=== PATIENT | female | born 1960 ===

== ENCOUNTER 2017-04-08 22:31 | Inpatient (IN) | payer MEDICARE, MEDICAID ==
--- NOTE | 2017-04-08 22:46 | C.PDOC ---
History Of Present Illness Pt was seen and medically cleared at [facility]. Pt was accepted in transfer by dr rodriguez for psychiatric admission Time Seen by Provider: 04/08/17 22:41 Chief Complaint (Nursing): Psychiatric Evaluation History Per: Patient History/Exam Limitations: no limitations Onset/Duration Of Symptoms: Days Current Symptoms Are (Timing): Still Present Suicide/Self Injury Attempted (Context): None Modifying Factor(s): None Severity: Moderate Pain Scale Rating Of: 4 Associated Symptoms: Anxiety Involuntary Hold By: None Recent travel outside of the [place]: No Additional History Per: Patient Past Medical History Reviewed: Historical Data, Nursing Documentation, Vital Signs Vital Signs: Last Vital Signs Temp 98.1 F 04/08/17 22:33 Pulse 58 L 04/08/17 22:33 Resp 20 04/08/17 22:33 BP 161/85 H 04/08/17 22:33 Pulse Ox 100 04/08/17 22:33 - Medical History PMH: Anxiety, Arthritis, Bipolar Disorder, Depression, Diabetes, HTN, Hypercholesterolemia, Hyperthyroidism, Schizophrenia Denies: Hepatitis, HIV, Chronic Kidney Disease, Seizures, Sexually Transmitted Disease Comment Only: Hypothyroidism (presently active) Surgical History: Cholecystectomy, Hernia Repair (umbilical hernia repair) - [facility] Procedures GROUP CHIEF LENDING OFFICER FOR SUBSTANCE ABUSE TREATMENT, PSYCHOEDUCATION (04/23/16) GROUP PSYCHOTHERAPY (03/22/16) INDIVID PSYCHOTHERAP NEC (10/09/14) INDIVIDUAL PSYCHOTHERAPY, COGNITIVE-BEHAVIORAL (03/22/16) INDIVIDUAL PSYCHOTHERAPY, SUPPORTIVE (04/02/17) INJECT/INFUSE NEC (03/26/14) OTHER GROUP THERAPY (10/09/14) Family History: States: No Known Family Hx - Social History Hx Tobacco Use: No Hx Alcohol Use: No (denies) Hx Substance Use: No (denies) - Immunization History Hx Tetanus Toxoid Vaccination: Yes Hx Influenza Vaccination: Yes Hx Pneumococcal Vaccination: Yes Review Of Systems Constitutional: Negative for: Fever, Chills Cardiovascular: Negative for: Chest Pain Respiratory: Negative for: Shortness of Breath Gastrointestinal: Negative for: Nausea Genitourinary: Negative for: Dysuria Musculoskeletal: Negative for: Back Pain Skin: Negative for: Rash Neurological: Negative for: Weakness Psych: Positive for: Anxiety Physical Exam - Physical Exam Appears: Non-toxic, No Acute Distress Skin: Warm, Dry Head: Normacephalic Oral Mucosa: Moist Neck: Supple Cardiovascular: Rhythm Regular Respiratory: No Rales, No Rhonchi Gastrointestinal/Abdominal: Soft, No Tenderness Extremity: Normal ROM Neurological/Psych: Oriented x3, Normal Speech, Normal Cognition Gait: Steady ED Course And Treatment O2 Sat by Pulse Oximetry: 100 Pulse Ox Interpretation: Normal Disposition Discussed With Dr.: Robert Rodriguez Comment: accepted the pt on his service and took over the care at 10:45 PM Doctor Will See Patient In The: Hospital Counseled Patient/Family Regarding: Studies Performed, Diagnosis - Disposition Disposition: HOSPITALIZED Disposition Time: 22:43 Condition: FAIR - POA Present On Arrival: None - Clinical Impression Clinical Impression: Manic bipolar I disorder Decision To Admit - Pt Status Changed To: Hospital Disposition Of: Inpatient - Admit Certification Admit to Inpatient:: After my assessment, the patient will require hospitalization for at least two midnights. This is because of the severity of symptoms shown, intensity of services needed, and/or the medical risk in this patient being treated as an outpatient. - InPatient: Physician Admission Certification: I certify that this patient requires 2 or more midnights of care for the following reason:: After my assessment, the patient will require hospitalization for at least two midnights. This is because of the severity of symptoms shown, intensity of services needed, and/or the medical risk in this patient being treated as an outpatient. - . Bed Request Type: Psychiatry Admitting Physician: Robert Rodriguez Patient Diagnosis: Manic bipolar I disorder
--- NOTE | 2017-04-09 09:34 | PCM.PSYCH ---
Initial Psychiatric Evaluation - Initial Psychiatric Evaluation Type of Admission: Voluntary Legal Status: Capacity Chief Complaint (in patient's own words): "I have delusions" History of Present Illness and Precipitating Events: Patient is a 56 years-old female, who lives with her son, was brought to the ER via EMS by her neighbor due to bizarre behavior. Patient is a poor historian. She remains superficially cooperative but guarded about the details. She reports of having delusions, and states that everyone is related to her. She states that she missed taking her medications for 2 days due to being locked out of her house, and had went to her brother's house, but a neighbor who found her outside brought her to the hospital. She states that she does not know why she was brought to the hospital. During the evaluation, she appears very disorganized and internally preoccupied. She is unkempt and disheveled and appears very paranoid and delusional. As per the staff, she speaks Israeli and Iraqi, but during the evaluation, she refused to speak Israeli because "it makes me sleepy." When asked why she came to the hospital, she started explaining the meaning of her name and started telling, how people mis-spell her name. She continues to have circumstantial and loose associations. Patient remains guarded about any hallucinations, and suicidal ideations. She denies any previous suicide attempts. Patient has a history of bipolar disorder. Her last psychiatric hospitalization was on 04/02/17 in [place], [place]. She denies any substance abuse. Past medical history DM Current Medications: Active Medications Generic Name Dose Route Start Last Admin Trade Name Freq PRN Reason Stop Dose Admin Haloperidol 5 mg 04/08/17 23:09 04/09/17 05:41 Haldol PO 5 mg Q6 PRN Administration Agitation Lorazepam 1 mg 04/08/17 23:09 04/09/17 05:41 Ativan PO 1 mg Q6 PRN Administration Anxiety Lorazepam 1 mg 04/08/17 23:36 04/09/17 00:06 Ativan IM 1 mg Q6H PRN Administration Severe anxiety Past Psychiatric History - Past Psychiatric History Previous Treatment History: Inpatient Pertinent Medical Hx (Current Medical&Sleep Prob, Allergies): Allergies Allergy/AdvReac Type Severity Reaction Status Date / Time tomato Allergy RASH Verified 04/08/17 22:40 Atorvastatin [Lipitor] 20 mg PO DAILY #30 tab 04/04/17 Benztropine [Cogentin] 1 mg PO BID #60 tab 04/04/17 Haloperidol [Haldol] 5 mg PO BID #60 tab 04/04/17 Levothyroxine [Synthroid] 88 mcg PO DAILY@0630 #30 tab 04/04/17 [place] Carbonate [[place] Carbonate 300MG] 300 mg PO TID #45 cap 04/04/17 Losartan [Cozaar] 50 mg PO DAILY #30 tab 04/04/17 Pregabalin [Lyrica] 75 mg PO BID #0 cap 04/04/17 metFORMIN [glucOPHAGE] 500 mg PO BID #60 tab 04/04/17 traZODone [Desyrel] 50 mg PO HS PRN #30 tab 04/04/17 Review of Systems - Review of Systems Systems not reviewed;Unavailable: Altered Mental Status All systems: reviewed and no additional remarkable complaints except - Psychiatric Psychiatric: Anxiety, Auditory Hallucinations, Irritability, Paranoia, Visual Hallucinations Mental Status Examination - Personal Presentation Personal Presentation: Looks stated age - Affect Affect: Broad - Motor Activity Motor Activity: Psychomotor Agitation - Reliability in Providing Information Reliability in Providing Information: Poor, due to alteration in thoughts, Poor , due to altered mood - Speech Speech: Disorganized, Tangential - Mood Mood: Anxious - Formal Thought Process Formal Thought Process: Hallucinations, Delusions, Paranoia, Loosening of associations, Flight of ideas, Circumstantial - Hallucinations/Delusions Hallucinations: Visual, Auditory Delusions: Persecution - Obsessions/Compulsions Obsessions: No Compulsions: No - Cognitive Functions Orientation: Person, Place, Situation, Time Sensorium: Alert Attention/Concentration: Attentive Abstract Thinking: [place] Estimate of Intelligence: Below average Judgement: Imparied, as evidence by: Poor judgement, Imparied, as evidence by: Lack of insight into illness - Risk Risk: Diminished functioning - Strength & Assets Inventory Strength & Assets Inventory: Cooperative DSM 5 DX - DSM 5 DSM 5 Diagnosis: Schizoaffective disorder bipolar type - Recommended/Plan of Treatment Treatment Recommendations and Plan of Treatment: Schizoaffective disorder bipolar type CBT Psychoeducation Supportive therapy, group therapy, individual therapy Haldol 5 mg by mouth twice a day Cogentin 1 mg pO BID [place] 300 mg pO TID Trazodone 50 mg by mouth daily at bedtime - Smoking Cessation Smoking Cessation Initiated: No
[2017-04-10] MEDS: Levothyroxine 88 MCG TAB PO SCH (06:22)
--- NOTE | 2017-04-10 10:30 | PCM.PYCHPN ---
Psychiatric Progress Note - Psychiatric Progress Note Patient seen today, length of contact: 16 min Patient Chief Complaint: "I am hearing voices" Problems Identified/Issues Discussed: Patient seen and evaluated, chart reviewed and discussed with the nurse. Patient remained disorganized and internally preoccupied. Patient remained withdrawn. She still reports of hearing voices. Patient still appears paranoid and delusional. She was pacing back and forth in the hallways and was talking to herself continuously. As per the staff, she was talking loudly to herself whole night and didn't go to sleep. She is taking medication and denies any side effects. Supportive therapy and psychoeducation were given. Medication Change: Yes (Increase Haldol) Medical Record Reviewed: Yes Mental Status Examination - Cognitive Function Orientation: Person, Place, Situation, Time Memory: Impaired Attention: Poor Concentration: Poor Association: Loose Fund of Knowledge: Poor - Mood Mood: Anxious - Affect Affect: Broad - Speech Speech: Loud - Formal Thought Process Formal Thought Process: Hallucinations, Delusions, Paranoia, Loosening of associations, Flight of ideas, Circumstantial - Suicidal Ideation Suicidal Ideation: No - Homicidal Ideation Homicidal Ideation: No Goal/Treatment Plan - Goal/Treatment Plan Need for Continued Stay: Remain at risks for inpatient hospitalization, Discharge may exacerbated symptoms, Severe functional impairment Progress Toward Problem(s) and Goals/Treatment Plan: Schizoaffective disorder bipolar type CBT Psychoeducation Supportive therapy, group therapy, individual therapy Haldol 5 mg by mouth daily Haldol 10 mg PO QHS Cogentin 1 mg pO BID [place] 300 mg pO TID Trazodone 50 mg by mouth daily at bedtime Estimated Date of D/C: 04/16/17
[2017-04-10] MEDS ORDERED: Diphenhydramine 1% Cream (1 oz) TOP PRN (20:12)
[2017-04-11] MEDS: Levothyroxine 88 MCG TAB PO SCH (07:10)
--- NOTE | 2017-04-11 13:54 | PCM.PYCHPN ---
Psychiatric Progress Note - Psychiatric Progress Note Patient seen today, length of contact: 18 min Patient Chief Complaint: "[employer] is offering me a job." Problems Identified/Issues Discussed: Patient is seen, evaluated, and case discussed with staff. Patient remained delusional and paranoid. She remained unkempt, and disheveled. She remained delusional that [employer] in offering her job. She continued to laugh and talk by herself. Patient still appears very disorganized , and manic. She reports that she did not get much sleep last night and has been awake since 2 am. Patient is complaint with all medications, and reports no side effects. Support and psychoeducation given. Medication Change: Yes (increase haldol) Medical Record Reviewed: Yes Mental Status Examination - Cognitive Function Orientation: Person, Place, Situation, Time Memory: Impaired Attention: Poor Concentration: Poor Association: Loose Fund of Knowledge: Poor - Mood Mood: Anxious - Affect Affect: Broad - Speech Speech: Loud - Formal Thought Process Formal Thought Process: Hallucinations, Delusions, Paranoia, Loosening of associations, Flight of ideas, Circumstantial - Suicidal Ideation Suicidal Ideation: No - Homicidal Ideation Homicidal Ideation: No Goal/Treatment Plan - Goal/Treatment Plan Need for Continued Stay: Remain at risks for inpatient hospitalization, Discharge may exacerbated symptoms, Severe functional impairment Progress Toward Problem(s) and Goals/Treatment Plan: Schizoaffective disorder bipolar type CBT Psychoeducation Supportive therapy, group therapy, individual therapy Haldol 10 mg by mouth twice a day Cogentin 1 mg pO BID [place] 300 mg pO TID Trazodone 50 mg by mouth daily at bedtime Estimated Date of D/C: 04/16/17
[2017-04-12] MEDS: Levothyroxine 88 MCG TAB PO SCH (06:27)
--- NOTE | 2017-04-12 09:39 | PCM.PYCHPN ---
Psychiatric Progress Note - Psychiatric Progress Note Patient seen today, length of contact: 18 min Patient Chief Complaint: "I have delusions that I am friendly with everyone" Problems Identified/Issues Discussed: Patient is seen, evaluated, and case discussed with staff. Patient states that she has delusions that she is friendly with everyone. She does not confuse staff with her family members today, but continues to have incoherent thoughts and believes she knows them from her past. Patient still appears very disorganized, and manic. She denies any hallucinations, and suicidal ideations. Staff reports that she only slept for 4-5 hours last night. Patient is complaint with all medications, and reports no side effects. Support and psychoeducation given. Medication Change: Yes (Start Fluphenazine, Start Klonopin, ) Medical Record Reviewed: Yes Mental Status Examination - Cognitive Function Orientation: Person, Place, Situation, Time Memory: Impaired Attention: Poor Concentration: Poor Association: Loose Fund of Knowledge: Poor - Mood Mood: Anxious - Affect Affect: Broad - Speech Speech: Loud - Formal Thought Process Formal Thought Process: Delusions, Paranoia, Loosening of associations, Flight of ideas, Circumstantial - Suicidal Ideation Suicidal Ideation: No Goal/Treatment Plan - Goal/Treatment Plan Need for Continued Stay: Remain at risks for inpatient hospitalization, Discharge may exacerbated symptoms, Severe functional impairment Progress Toward Problem(s) and Goals/Treatment Plan: Schizoaffective disorder bipolar type CBT Psychoeducation Supportive therapy, group therapy, individual therapy Haldol 10 mg by mouth twice a day Cogentin 1 mg pO BID [place] 300 mg pO TID Trazodone 50 mg by mouth daily at bedtime Start Fluphenazine 5 mg PO BID Start Klonopin 1 mg PO BID Start Seroquel 200 mg PO QHS Estimated Date of D/C: 04/17/17
[2017-04-12] MEDS: Divalproex 250 mg DR Tab PO SCH ×2 (17:30→17:56)
[2017-04-13] MEDS: Levothyroxine 88 MCG TAB PO SCH (07:40)
[2017-04-13] MEDS: Divalproex 250 mg DR Tab PO SCH ×3 (09:56→17:46)
--- NOTE | 2017-04-13 14:48 | PCM.PYCHPN ---
Psychiatric Progress Note - Psychiatric Progress Note Patient seen today, length of contact: 17 min Patient Chief Complaint: "I have delusions" Problems Identified/Issues Discussed: Patient is seen, evaluated, and case discussed with staff. Patient states that she has delusions today. Patient is very irritable today, and gets upset very quickly with the staff and other patients. Patient still appears very disorganized, and manic. She denies any hallucinations, and suicidal ideations. Staff reports that she slept for 6 hours last night. Patient is complaint with all medications, and reports no side effects. Support and psychoeducation given. Medication Change: Yes (Increase Prolixin ) Medical Record Reviewed: Yes Mental Status Examination - Cognitive Function Orientation: Person, Place, Situation, Time Memory: Impaired Attention: Poor Concentration: Poor Association: Loose Fund of Knowledge: Poor - Mood Mood: Anxious - Affect Affect: Broad - Speech Speech: Loud - Formal Thought Process Formal Thought Process: Delusions, Paranoia, Loosening of associations, Flight of ideas, Circumstantial - Suicidal Ideation Suicidal Ideation: No - Homicidal Ideation Homicidal Ideation: No Goal/Treatment Plan - Goal/Treatment Plan Need for Continued Stay: Remain at risks for inpatient hospitalization, Discharge may exacerbated symptoms, Severe functional impairment Progress Toward Problem(s) and Goals/Treatment Plan: Schizoaffective disorder bipolar type CBT Psychoeducation Supportive therapy, group therapy, individual therapy Haldol 5 mg by mouth twice a day Cogentin 1 mg pO BID [place] 300 mg pO TID Trazodone 50 mg by mouth daily at bedtime Fluphenazine 10 mg PO BID Start Klonopin 1 mg PO BID Start Seroquel 200 mg PO QHS Estimated Date of D/C: 04/17/17
[2017-04-14] MEDS: Levothyroxine 88 MCG TAB PO SCH (07:25)
[2017-04-14] MEDS: Divalproex 500 mg DR Tab PO SCH ×2 (09:50→18:19)
[2017-04-14] MEDS ORDERED: fluPHENAZine Decanoate 25 mg/mL Inj(5ml) IM ONE (10:52)
--- NOTE | 2017-04-14 10:52 | PCM.PYCHPN ---
Psychiatric Progress Note - Psychiatric Progress Note Patient seen today, length of contact: 17 min Patient Chief Complaint: "I have delusions" Problems Identified/Issues Discussed: Patient is seen, evaluated, and case discussed with staff. Patient remained delusional and paranoid. Today she remained irritable and agitated. She is going to rooms of different patients and remained talkative and continued to have loose associations. Patient still appears very disorganized, and manic. Patient is complaint with all medications, and reports no side effects. Support and psychoeducation given. Medication Change: Yes (Prolixin decanoate) Medical Record Reviewed: Yes Mental Status Examination - Cognitive Function Orientation: Person, Place, Situation, Time Memory: Impaired Attention: Poor Concentration: Poor Association: Loose Fund of Knowledge: Poor - Mood Mood: Anxious - Affect Affect: Broad - Speech Speech: Loud - Formal Thought Process Formal Thought Process: Delusions, Paranoia, Loosening of associations, Flight of ideas - Suicidal Ideation Suicidal Ideation: No - Homicidal Ideation Homicidal Ideation: No Goal/Treatment Plan - Goal/Treatment Plan Need for Continued Stay: Remain at risks for inpatient hospitalization, Discharge may exacerbated symptoms, Severe functional impairment Progress Toward Problem(s) and Goals/Treatment Plan: Schizoaffective disorder bipolar type CBT Psychoeducation Supportive therapy, group therapy, individual therapy Cogentin 1 mg pO BID Depakote 500 mg PO BID Trazodone 50 mg by mouth daily at bedtime Fluphenazine 10 mg PO BID Klonopin 1 mg PO BID Seroquel 200 mg PO QHS Prolixin [place] 25 mg I/M stat Estimated Date of D/C: 04/17/17 - Smoking Cessation Smoking Cessation Initiated: No
[2017-04-15] MEDS: Levothyroxine 88 MCG TAB PO SCH (05:53)
[2017-04-15] MEDS: Divalproex 500 mg DR Tab PO SCH ×2 (09:40→17:41)
--- NOTE | 2017-04-15 10:40 | PCM.PYCHPN ---
Psychiatric Progress Note - Psychiatric Progress Note Patient seen today, length of contact: 15 min Patient Chief Complaint: "I am feeling better' Problems Identified/Issues Discussed: Patient is seen, evaluated, and case discussed with staff. Today she remained irritable and agitated. She is still going to rooms of different patients and remained talkative and continued to have loose associations. Patient remained delusional, paranoid and disorganized. Patient started refusing some medications saying I am feeling better. Support and psychoeducation given. Medication Change: Yes (start risperdal ) Medical Record Reviewed: Yes Mental Status Examination - Cognitive Function Orientation: Person, Place, Situation, Time Memory: Impaired Attention: Poor Concentration: Poor Association: Loose Fund of Knowledge: Poor - Mood Mood: Anxious - Affect Affect: Broad - Speech Speech: Loud - Formal Thought Process Formal Thought Process: Delusions, Paranoia, Loosening of associations, Flight of ideas, Circumstantial - Suicidal Ideation Suicidal Ideation: No - Homicidal Ideation Homicidal Ideation: No Goal/Treatment Plan - Goal/Treatment Plan Need for Continued Stay: Remain at risks for inpatient hospitalization, Discharge may exacerbated symptoms, Severe functional impairment Progress Toward Problem(s) and Goals/Treatment Plan: Schizoaffective disorder bipolar type CBT Psychoeducation Supportive therapy, group therapy, individual therapy Cogentin 1 mg pO BID Depakote 500 mg PO BID Trazodone 50 mg by mouth daily at bedtime Fluphenazine 10 mg PO BID Klonopin 1 mg PO BID Seroquel 200 mg PO QHS Prolixin [place] 25 mg I/M stat Risperdal 1 mg po BID Estimated Date of D/C: 04/17/17 - Smoking Cessation Smoking Cessation Initiated: No
[2017-04-16] MEDS: Levothyroxine 88 MCG TAB PO SCH (06:37)
[2017-04-16] MEDS: Divalproex 500 mg DR Tab PO SCH ×2 (10:09→21:40)
--- NOTE | 2017-04-16 11:36 | PCM.BM ---
- Diagnosis (1) Schizoaffective disorder Status: Acute Interventions: 04/16/17 11:35 Attend groups, take meds - Milieu Protocol Milieu Narrative: Schizoaffective disorder bipolar type CBT Psychoeducation Supportive therapy, group therapy, individual therapy Haldol 10 mg by mouth twice a day Cogentin 1 mg pO BID [place] 300 mg pO TID Trazodone 50 mg by mouth daily at bedtime Fluphenazine 10 mg PO BID Klonopin 1 mg PO BID Seroquel 200 mg PO QHS Risperdal 1 mg po BID Prolixin [place] 25 mg I/M Discharge/Continuing Care - Additional Comments Schizoaffective disorder bipolar type CBT Psychoeducation Supportive therapy, group therapy, individual therapy Haldol 10 mg by mouth twice a day Cogentin 1 mg pO BID [place] 300 mg pO TID Trazodone 50 mg by mouth daily at bedtime Fluphenazine 10 mg PO BID Klonopin 1 mg PO BID Seroquel 200 mg PO QHS Risperdal 1 mg po BID Prolixin [place] 25 mg I/M - Treatment Team Participation Patient/Family/SO Statement: Schizoaffective disorder bipolar type CBT Psychoeducation Supportive therapy, group therapy, individual therapy Haldol 10 mg by mouth twice a day Cogentin 1 mg pO BID [place] 300 mg pO TID Trazodone 50 mg by mouth daily at bedtime Fluphenazine 10 mg PO BID Klonopin 1 mg PO BID Seroquel 200 mg PO QHS Risperdal 1 mg po BID Prolixin [place] 25 mg I/M
--- NOTE | 2017-04-16 12:51 | PCM.PYCHPN ---
Psychiatric Progress Note - Psychiatric Progress Note Patient seen today, length of contact: 16 min Patient Chief Complaint: "I am feeling excellent" Problems Identified/Issues Discussed: Patient is seen, evaluated, and case discussed with staff. Patient still appears very disorganized, and manic. She speaks only Croatian and is very talkative. She denies any hallucinations, and suicidal ideations. Staff reports that she slept throughout the night. Patient did not take Prolixin today morning or Depakote for the past 2 days. She reports that Depakote makes her mouth dry. She is compliant with other medications, and reports no other side effects. Support and psychoeducation given. Medication Change: Yes (stop depakote, start lithium, increase risperdal) Medical Record Reviewed: Yes Mental Status Examination - Cognitive Function Orientation: Person, Place, Situation, Time Memory: Impaired Attention: Poor Concentration: Poor Association: Loose Fund of Knowledge: Poor - Mood Mood: Anxious - Affect Affect: Broad - Speech Speech: Loud - Formal Thought Process Formal Thought Process: Delusions, Paranoia, Loosening of associations, Flight of ideas, Circumstantial - Suicidal Ideation Suicidal Ideation: No - Homicidal Ideation Homicidal Ideation: No Goal/Treatment Plan - Goal/Treatment Plan Need for Continued Stay: Remain at risks for inpatient hospitalization, Discharge may exacerbated symptoms, Severe functional impairment Progress Toward Problem(s) and Goals/Treatment Plan: Schizoaffective disorder bipolar type CBT Psychoeducation Supportive therapy, group therapy, individual therapy Cogentin 1 mg pO BID [place] 300 mg PO TID Trazodone 50 mg by mouth daily at bedtime Fluphenazine 10 mg PO BID Klonopin 1 mg PO TID Seroquel 200 mg PO QHS Risperdal 3 mg po BID Prolixin [place] 25 mg I/M Estimated Date of D/C: 04/20/17 - Smoking Cessation Smoking Cessation Initiated: No
[2017-04-17] MEDS: Levothyroxine 88 MCG TAB PO SCH (05:55)
--- NOTE | 2017-04-17 15:34 | PCM.PYCHPN ---
Psychiatric Progress Note - Psychiatric Progress Note Patient seen today, length of contact: 17 min Patient Chief Complaint: "I have delusions that I am friendly with everyone" Problems Identified/Issues Discussed: Patient is seen, evaluated, and case discussed with staff. Patient states that she has delusions that she is friendly with everyone. Patient seems more irritable and agitated today and walks into other patient's rooms speaking Azeri. She argues with other patients. Patient still appears very disorganized, and manic. She denies any hallucinations, and suicidal ideations. Staff reports that she has been awake since 3am and that last night she urinated on the floor. Patient is complaint with all medications, and reports no side effects. Support and psychoeducation given. Medication Change: No Medical Record Reviewed: Yes Mental Status Examination - Cognitive Function Orientation: Person, Place, Situation, Time Memory: Impaired, Confabulations Attention: Poor Concentration: Poor Association: Loose Fund of Knowledge: Poor - Mood Mood: Anxious - Affect Affect: Broad - Speech Speech: Loud - Formal Thought Process Formal Thought Process: Delusions, Paranoia, Loosening of associations, Flight of ideas, Circumstantial - Suicidal Ideation Suicidal Ideation: No - Homicidal Ideation Homicidal Ideation: No Goal/Treatment Plan - Goal/Treatment Plan Need for Continued Stay: Remain at risks for inpatient hospitalization, Discharge may exacerbated symptoms, Severe functional impairment Progress Toward Problem(s) and Goals/Treatment Plan: Schizoaffective disorder bipolar type CBT Psychoeducation Supportive therapy, group therapy, individual therapy Cogentin 1 mg pO BID [place] 300 mg PO TID Trazodone 50 mg by mouth daily at bedtime Fluphenazine 10 mg PO BID Klonopin 1 mg PO TID Seroquel 200 mg PO QHS Risperdal 3 mg po BID Prolixin Decanoate 25 mg I/M [facility] was requested for a consult. Estimated Date of D/C: 04/19/17 - Smoking Cessation Smoking Cessation Initiated: No
[2017-04-17 16:02] LABS: HCG,QUALITATIVE URINE NEGATIVE (NEGATIVE)
[2017-04-17 16:07] LABS: SQUAMOUS EPITHIAL < 1 /hpf (0-5); URINE BILIRUBIN NEGATIVE (NEGATIVE); URINE BLOOD NEGATIVE (NEGATIVE); URINE CLARITY Clear (Clear); URINE COLOR Straw (YELLOW); URINE GLUCOSE (UA) 2+ mg/dL (Normal); URINE LEUKOCYTE ESTERASE 2+ Leu/uL (Negative); URINE NITRATE NEGATIVE (NEGATIVE); URINE PROTEIN NEGATIVE (NEGATIVE); URINE UROBILINOGEN NORMAL mg/dL (0.2-1.0)
[2017-04-17 16:53] LABS: BASO % 0.3 % (0.0-2.0); EOS # 0.3 K/uL (0.0-0.7); EOS % 3.3 % (0.0-4.0); HEMOGLOBIN 13.5 g/dL (11.0-16.0); LYMPH # 2.7 K/uL (1.0-4.3); LYMPH % 30.7 % (20.0-40.0); MEAN CELL VOLUME 94.9 fL (81.0-99.0); MEAN CORPUSCULAR HEMOGLOBIN 32.2 pg (27.0-31.0); MEAN PLATELET VOLUME 8.2 fL (7.2-11.7); MONO # 0.6 K/uL (0.0-0.8); MONO % 6.6 % (0.0-10.0); NEUT # 5.3 K/uL (1.8-7.0); NEUT % 59.1 % (50.0-75.0); RBC 4.19 Mil/uL (3.80-5.20); RED CELL DISTRIBUTION WIDTH 14.2 % (11.5-14.5); WHITE BLOOD COUNT 8.9 K/uL (4.8-10.8)
[2017-04-17 17:04] LABS: ALB/GLOB RATIO 1.3 (1.0-2.1); GFR AFRICAN-AMERICAN > 60; GFR NON-AFRICAN AMERICAN > 60
[2017-04-17 17:05] LABS: ALT/SGPT 62 U/L (9-52); AST/SGOT 39 U/L (14-36); BLOOD UREA NITROGEN 14 mg/dL (7-17); CALCIUM 9.6 mg/dl (8.6-10.4)
[2017-04-18] MEDS: Levothyroxine 88 MCG TAB PO SCH (07:02)
--- NOTE | 2017-04-18 10:27 | PCM.PYCHPN ---
Psychiatric Progress Note - Psychiatric Progress Note Patient seen today, length of contact: 17 min Patient Chief Complaint: "I have to get back to work or I will lose my job" Problems Identified/Issues Discussed: Patient is seen, evaluated, and case discussed with staff. Patient seems more calm and coherent today. She is still irritable and agitated and argued with another patient last night. Patient still appears disorganized, and manic. She denies any hallucinations, and suicidal ideations. Staff reports that she slept throughout the night. Patient is complaint with all medications, and reports no side effects. Support and psychoeducation given. Medication Change: Yes (increase risperdal) Medical Record Reviewed: Yes Mental Status Examination - Cognitive Function Orientation: Person, Place, Situation, Time Memory: Impaired, Confabulations Attention: Poor Concentration: Poor Association: Loose Fund of Knowledge: Poor - Mood Mood: Anxious - Affect Affect: Broad - Speech Speech: Loud - Formal Thought Process Formal Thought Process: Delusions, Paranoia, Loosening of associations, Flight of ideas, Circumstantial - Suicidal Ideation Suicidal Ideation: No - Homicidal Ideation Homicidal Ideation: No Goal/Treatment Plan - Goal/Treatment Plan Need for Continued Stay: Remain at risks for inpatient hospitalization, Discharge may exacerbated symptoms, Severe functional impairment Progress Toward Problem(s) and Goals/Treatment Plan: Schizoaffective disorder bipolar type CBT Psychoeducation Supportive therapy, group therapy, individual therapy Cogentin 1 mg pO BID [place] 300 mg PO TID Trazodone 50 mg by mouth daily at bedtime Fluphenazine 10 mg PO BID Klonopin 1 mg PO TID Seroquel 200 mg PO QHS Risperdal 3 mg po BID Prolixin Decanoate 25 mg I/M (next due 04/27/17) [facility] was requested for a consult. Estimated Date of D/C: 04/20/17 If changed, why: Needs more time to stabilize
--- NOTE | 2017-04-18 11:04 | PCM.BM ---
- Diagnosis (1) Schizoaffective disorder Status: Acute Interventions: 04/16/17 11:35 Attend groups, take meds, Call [facility] 04/18/17 11:03 - Milieu Protocol Milieu Narrative: Schizoaffective disorder bipolar type CBT Psychoeducation Supportive therapy, group therapy, individual therapy Haldol 10 mg by mouth twice a day Cogentin 1 mg pO BID [place]at[place] 300 mg pO TID Trazodone 50 mg by mouth daily at bedtime Start Fluphenazine 5 mg PO BID Start Klonopin 1 mg PO BID Start Seroquel 200 mg PO QHS [facility] was requested for a consult. Discharge/Continuing Care - Additional Comments Schizoaffective disorder bipolar type CBT Psychoeducation Supportive therapy, group therapy, individual therapy Haldol 10 mg by mouth twice a day Cogentin 1 mg pO BID Anat[place] 300 mg pO TID Trazodone 50 mg by mouth daily at bedtime Start Fluphenazine 5 mg PO BID Start Klonopin 1 mg PO BID Start Seroquel 200 mg PO QHS [facility] was requested for a consult. - Treatment Team Participation Patient/Family/SO Statement: Schizoaffective disorder bipolar type CBT Psychoeducation Supportive therapy, group therapy, individual therapy Haldol 10 mg by mouth twice a day Cogentin 1 mg pO BID Anatone 300 mg pO TID Trazodone 50 mg by mouth daily at bedtime Start Fluphenazine 5 mg PO BID Start Klonopin 1 mg PO BID Start Seroquel 200 mg PO QHS [facility] was requested for a consult.
[2017-04-18 19:41] LABS: URINE BILIRUBIN NEGATIVE (NEGATIVE); URINE BLOOD NEGATIVE (NEGATIVE); URINE CLARITY Clear (Clear); URINE COLOR Straw (YELLOW); URINE GLUCOSE (UA) NORMAL (Normal); URINE LEUKOCYTE ESTERASE NEG Leu/uL (Negative); URINE NITRATE NEGATIVE (NEGATIVE); URINE PROTEIN NEGATIVE (NEGATIVE); URINE UROBILINOGEN NORMAL mg/dL (0.2-1.0)
[2017-04-19] MEDS: Levothyroxine 88 MCG TAB PO SCH (05:55)
[2017-04-19] MEDS: Pantoprazole 40 mg EC Tab PO SCH (10:02)
--- NOTE | 2017-04-19 10:36 | PCM.PYCHPN ---
Psychiatric Progress Note - Psychiatric Progress Note Patient seen today, length of contact: 17 min Patient Chief Complaint: "I have to get back to work or I will lose my job." Problems Identified/Issues Discussed: Patient is seen, evaluated, and case discussed with staff. Patient remained disorganized, paranoid and cooperative. Her speech is overproductive. She is telling a lot of stories, such as her previous job and her address. 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 She also says she lives in [place]. Patient is still very irritable and agitated. She constantly talks and argues with many patients. Many patients have complained about being bothered by her. Patient still appears disorganized, and manic. She denies any hallucinations, and suicidal ideations. Patient is complaint with all medications, and reports no side effects. Patient was seen and accepted by [facility]. Support and psychoeducation given. Medication Change: Yes (increase risperdal) Medical Record Reviewed: Yes Mental Status Examination - Cognitive Function Orientation: Person, Place, Situation, Time Memory: Impaired, Confabulations Attention: Poor Concentration: Poor Association: Loose Fund of Knowledge: Poor - Mood Mood: Anxious - Affect Affect: Broad - Speech Speech: Loud - Formal Thought Process Formal Thought Process: Delusions, Paranoia, Loosening of associations, Flight of ideas, Circumstantial - Suicidal Ideation Suicidal Ideation: No - Homicidal Ideation Homicidal Ideation: No Goal/Treatment Plan - Goal/Treatment Plan Need for Continued Stay: Remain at risks for inpatient hospitalization, Discharge may exacerbated symptoms, Severe functional impairment Progress Toward Problem(s) and Goals/Treatment Plan: Schizoaffective disorder bipolar type CBT Psychoeducation Supportive therapy, group therapy, individual therapy Cogentin 1 mg pO BID [place] 300 mg PO TID Trazodone 50 mg by mouth daily at bedtime Fluphenazine 10 mg PO BID Klonopin 1 mg PO TID Seroquel 200 mg PO QHS Risperdal 4 mg po BID Prolixin Decanoate 25 mg I/M (next due 04/27/17) [facility] screened and accepted patient. Currently waiting on an available bed. Estimated Date of D/C: 04/20/17 - Smoking Cessation Smoking Cessation Initiated: No
[2017-04-20] MEDS: Levothyroxine 88 MCG TAB PO SCH (06:20)
[2017-04-20] MEDS: Pantoprazole 40 mg EC Tab PO SCH (09:12)
[2017-04-20] MEDS ORDERED: (Novolin R) Insulin Human Regular 100 units/ml vial SC ONE ×2 (12:41→15:05)
--- NOTE | 2017-04-20 13:34 | PCM.PYCHPN ---
Psychiatric Progress Note - Psychiatric Progress Note Patient seen today, length of contact: 16 min Patient Chief Complaint: "I am feeling sad" Problems Identified/Issues Discussed: Patient is seen, evaluated, and case discussed with staff. Patient remained disorganized, paranoid and cooperative. Her speech is overproductive. She continues to tell a lot of stories and give advice to staff members and other patients. She states that her brother was a lieutenant not in this country and that he . She also says to "study hard but the most important thing that you must not forget, the most important thing is Holy Matrimony. Don't have sex before marriage. Make sure your has time for holidays and birthdays. Keep your eyes open and your legs closed." Patient is still very irritable and agitated. She constantly talks and argues with many patients. Many patients have complained about being bothered by her. Patient still appears disorganized, and manic. She denies any hallucinations, and suicidal ideations. Patient is complaint with all medications, and reports no side effects. Patient was seen and accepted by [facility]. Support and psychoeducation given. Medication Change: Yes (increase risperdal) Medical Record Reviewed: Yes Mental Status Examination - Cognitive Function Orientation: Person, Place, Situation, Time Memory: Impaired, Confabulations Attention: Poor Concentration: Poor Association: Loose Fund of Knowledge: Poor - Mood Mood: Anxious - Affect Affect: Broad - Speech Speech: Soft, Pressured - Formal Thought Process Formal Thought Process: Delusions, Paranoia, Loosening of associations, Flight of ideas, Circumstantial - Suicidal Ideation Suicidal Ideation: No - Homicidal Ideation Homicidal Ideation: No Goal/Treatment Plan - Goal/Treatment Plan Need for Continued Stay: Remain at risks for inpatient hospitalization, Discharge may exacerbated symptoms, Severe functional impairment Progress Toward Problem(s) and Goals/Treatment Plan: Schizoaffective disorder bipolar type CBT Psychoeducation Supportive therapy, group therapy, individual therapy Cogentin 1 mg pO BID [place] 300 mg PO TID Trazodone 50 mg by mouth daily at bedtime Fluphenazine 10 mg PO BID Klonopin 1 mg PO TID Seroquel 200 mg PO QHS Risperdal 4 mg po BID Prolixin Decanoate 25 mg I/M (next due 04/27/17) [facility] screened and accepted patient. Currently waiting on an available bed. Estimated Date of D/C: 04/21/17
[2017-04-21] MEDS: Levothyroxine 88 MCG TAB PO SCH (05:38)
[2017-04-21] MEDS: Pantoprazole 40 mg EC Tab PO SCH (09:54)
[2017-04-21 11:45] VITALS: O2SAT 99
--- NOTE | 2017-04-21 18:35 | PCM.PYCHPN ---
Psychiatric Progress Note - Psychiatric Progress Note Patient seen today, length of contact: 15 minutes Patient Chief Complaint: I'm good. Can I go home. Problems Identified/Issues Discussed: Patient seen. Chart reviewed. Case discussed with the staff. Issues related to illness and treatment were discussed with the patient. Reported compliant with treatment with no adverse affects. Patient still was disorganized, arguing with different patient's and staff. Needs frequent redirections. According to previous notes, patient was accepted by [facility] and is waiting for bed availability. Once bed available, patient will be transferred to [facility]. At the time of evaluation, patient was still disorganized and manic, had no delusions, no auditory or visual hallucinations, no suicidal ideations or homicidal ideations. Medical Problems: Diabetes mellitus Hypertension Diagnostic Results: Reviewed DSM 5 Symptoms Update: some improvement with treatment Medication Change: No Medical Record Reviewed: Yes Mental Status Examination - Cognitive Function Orientation: Person, Place, Situation, Time Memory: Intact, Confabulations Attention: WNL Concentration: WNL Association: Loose Fund of Knowledge: WNL Decription of patient's judgement and insights: Poor - Mood Mood: Euphoric - Affect Affect: Blunted - Speech Speech: Loud (At times) - Formal Thought Process Formal Thought Process: Loosening of associations, Flight of ideas - Suicidal Ideation Suicidal Ideation: No - Homicidal Ideation Homicidal Ideation: No Goal/Treatment Plan - Goal/Treatment Plan Need for Continued Stay: Remain at risks for inpatient hospitalization, Discharge may exacerbated symptoms, Severe functional impairment Progress Toward Problem(s) and Goals/Treatment Plan: Patient education Supportive therapy Continue treatment as before Estimated Date of D/C: 04/23/17 - Smoking Cessation Smoking Cessation Initiated: No
[2017-04-21] MEDS: (Novolog) Insulin Aspart, Recombinant 100 u/ml 10 ml vial SC SCH (21:13)
[2017-04-22] MEDS: Levothyroxine 88 MCG TAB PO SCH (06:26)
[2017-04-22] MEDS: (Novolog) Insulin Aspart, Recombinant 100 u/ml 10 ml vial SC SCH ×4 (08:16→23:58)
[2017-04-22 08:22] VITALS: RESP 20
--- NOTE | 2017-04-22 12:58 | PCM.PYCHPN ---
Psychiatric Progress Note - Psychiatric Progress Note Patient seen today, length of contact: 15 minutes Patient Chief Complaint: "I'm fine" Problems Identified/Issues Discussed: The pt is seen, chart reviewed, case discussed with staff. The pt is compliant with medications but on and off Symptoms are NOT improving enough and needs more time to stabilize. Still very expansive, no boundaries, psychotic and has pressured loose speech and TP Awaiting transfer to [facility] Support and psychoeducation given. Medication Change: No Medical Record Reviewed: Yes Mental Status Examination - Cognitive Function Orientation: Person, Place, Situation, Time Memory: Intact, Confabulations Attention: Poor Concentration: Poor Association: Loose Fund of Knowledge: WNL - Mood Mood: Euphoric - Affect Affect: Other (labile) - Speech Speech: Loud (At times) - Formal Thought Process Formal Thought Process: Loosening of associations, Flight of ideas - Suicidal Ideation Suicidal Ideation: No - Homicidal Ideation Homicidal Ideation: No Goal/Treatment Plan - Goal/Treatment Plan Need for Continued Stay: Remain at risks for inpatient hospitalization, Discharge may exacerbated symptoms, Severe functional impairment Progress Toward Problem(s) and Goals/Treatment Plan: Continue meds Support Transfer to [facility] for invol stay Estimated Date of D/C: 04/23/17
[2017-04-22] MEDS: Pantoprazole 40 mg EC Tab PO SCH (20:19)
[2017-04-23] MEDS: Levothyroxine 88 MCG TAB PO SCH (05:50)
[2017-04-23] MEDS: (Novolog) Insulin Aspart, Recombinant 100 u/ml 10 ml vial SC SCH ×2 (08:26→11:50)
[2017-04-23] MEDS: Pantoprazole 40 mg EC Tab PO SCH (09:59)
[2017-04-23 11:00] VITALS: BP 143/82; PULSE 88; TEMP 97.9
--- NOTE | 2017-04-23 13:31 | PCM.PYCHDC ---
Mental Status Examination - Mental Status Examination Orientation: Person, Place, Time Memory: Impaired, Confabulations Mood: Anxious Affect: Broad Speech: Loud Attention: Poor Concentration: Poor Association: Loose Fund of Knowledge: Poor Formal Thought Process: Delusions, Paranoia, Loosening of associations, Flight of ideas, Circumstantial Suicidal Ideation: No Current Homicidal Ideation?: No Discharge Summary - Discharge Note Reason for Hospitalization: Patient was admitted for management for Bipolar disorder, manic episode. Laboratory Data: Abnormal Lab Results 04/22/17 04/22/17 04/23/17 16:42 23:55 07: POC Glucose (mg/dL) 238 H 206 H 193 H 04/23/17 11:51 POC Glucose (mg/dL) 154 H Consultations:: List each consultation separately and include: 1. Reason for request. 2. Findings. 3. Follow-up Summary of Hospital Course include:: 1. Description of specific treatment plan utilized for patients during their course of treatmen. 2. Summarize the time- course for resolution of acute symptoms and/or regressed behaviors. 3. Describe issues identified and worked on during hospitalization. 4. Describe medication utilized. 5. Describe medical problems identified and treated. 6. Reassessment of suicide risk Summary of Hospital Course: Upon admission: Patient is a 56 years-old female, who lives with her son, was brought to the ER via EMS by her neighbor due to bizarre behavior. Patient is a poor historian. She remains superficially cooperative but guarded about the details. She reports of having delusions, and states that everyone is related to her. She states that she missed taking her medications for 2 days due to being locked out of her house, and had went to her brother's house, but a neighbor who found her outside brought her to the hospital. She states that she does not know why she was brought to the hospital. During the evaluation, she appears very disorganized and internally preoccupied. She is unkempt and disheveled and appears very paranoid and delusional. As per the staff, she speaks [place] and Vietnamese, but during the evaluation, she refused to speak [place] because "it makes me sleepy." When asked why she came to the hospital, she started explaining the meaning of her name and started telling, how people mis-spell her name. She continues to have circumstantial and loose associations. Patient remains guarded about any hallucinations, and suicidal ideations. She denies any previous suicide attempts. Patient has a history of bipolar disorder. Her last psychiatric hospitalization was on 04/02/17 in [place], [place]. She denies any substance abuse. Past medical history DM Upon discharge: The pt was admitted and started on treatment with psychotherapy, support, psychoeducation and medications. [place] and CBT used. The pt attended groups and activities, as well as milieu therapy. All the risks and benefits of medications are discussed and the patient understood and agreed. The pt improved with the treatments provided. After care discussed with the patient. - Final Diagnosis (DSM 5) Condition upon Discharge: FAIR DSM 5: Schizoaffective disorder bipolar type Disposition: DISCHARGE TO PSYCH HOSPITAL Follow-up Treatment Plan: Continue below medications after discharge. Follow after care plan as discussed. Use relapse prevention skills Return to ER or call 911 if suicidal, homicidal or symptoms relapse. Stay away from stress, alcohol and drugs. See primary doctor once a year. - Antipsychotic Medications Pt discharged on 2 or more routine antipsychotic medications: Yes - Justification for 2 or more meds Failed 3 or more trials of Monotherapy: List medications: Prolixin, Haldol, Seroquel, Risperdal
== END 2017-04-23 14:00 | DRG 885 ==
LOC: C.ER 22:31 → C.5E 22:43
PROC: GZHZZZZ Group Psychotherapy (ICD-10-PCS; principal; 2017-04-08)
PROC: GZ58ZZZ Individual Psychotherapy, Cognitive-Behavioral (ICD-10-PCS; 2017-04-08)
PROC: GZ56ZZZ Individual Psychotherapy, Supportive (ICD-10-PCS; 2017-04-08)
DX: F25.0 Schizoaffective disorder, bipolar type (principal); E11.9 Type 2 diabetes mellitus without complications; I10 Essential (primary) hypertension; E78.00 Pure hypercholesterolemia, unspecified; E05.90 Thyrotoxicosis, unspecified without thyrotoxic crisis or storm; E03.9 Hypothyroidism, unspecified; R41.82 Altered mental status, unspecified

== ENCOUNTER 2017-08-23 22:16 | Inpatient (IN) | payer MEDICARE, MEDICAID ==
--- NOTE | 2017-08-23 23:23 | C.PDOC ---
History Of Present Illness 56 y/o female hx; schizophrenia presents to ED coming with many varied complaints, all non specific. The patient was seen in [facility] two days agofor chest pain and had a negative work up. Patient does exhibit occasional bizarre affect in the ed Time Seen by Provider: 08/23/17 23:10 Chief Complaint (Nursing): Abdominal Pain History Per: Patient History/Exam Limitations: no limitations Onset/Duration Of Symptoms: Hrs Current Symptoms Are (Timing): Still Present Severity: None Radiation Of Pain To:: None Quality Of Discomfort: Unable To Describe Associated Symptoms: denies: Fever, Nausea, Vomiting Alleviating Factors: None Last Bowel Movement: Yesterday Recent travel outside of the [place]: No Additional History Per: Patient Past Medical History Reviewed: Historical Data, Nursing Documentation, Vital Signs Vital Signs: Last Vital Signs Temp 98.2 F 08/23/17 22:43 Pulse 70 08/23/17 22:43 Resp 14 08/23/17 22:43 BP 143/86 08/23/17 22:43 Pulse Ox 96 08/24/17 00:37 - Medical History PMH: Anxiety, Arthritis, Bipolar Disorder, Depression, HTN, Hypercholesterolemia , Hyperthyroidism, Hypothyroidism, Schizophrenia Denies: Diabetes, Hepatitis, HIV, Chronic Kidney Disease, Seizures, Sexually Transmitted Disease Surgical History: Cholecystectomy, Hernia Repair (umbilical hernia repair) - [facility] Procedures 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 FOR SUBSTANCE ABUSE TREATMENT, PSYCHOEDUCATION (04/23/16) GROUP PSYCHOTHERAPY (05/15/17) INDIVID PSYCHOTHERAP NEC (10/09/14) INDIVIDUAL PSYCHOTHERAPY, COGNITIVE-BEHAVIORAL (04/08/17) INDIVIDUAL PSYCHOTHERAPY, SUPPORTIVE (05/15/17) INJECT/INFUSE NEC (03/26/14) OTHER GROUP THERAPY (10/09/14) Family History: States: No Known Family Hx - Social History Hx Tobacco Use: No Hx Alcohol Use: No Hx Substance Use: No - Immunization History Hx Tetanus Toxoid Vaccination: Yes Hx Influenza Vaccination: Yes Hx Pneumococcal Vaccination: Yes Review Of Systems Except As Marked, All Systems Reviewed And Found Negative. Constitutional: Negative for: Fever, Chills Respiratory: Negative for: Shortness of Breath Gastrointestinal: Negative for: Nausea, Vomiting, Abdominal Pain Neurological: Negative for: Headache, Dizziness Physical Exam - Physical Exam Appears: Non-toxic, No Acute Distress Skin: Warm, Dry Head: Normacephalic Eye(s): bilateral: Normal Inspection Oral Mucosa: Moist Neck: Supple Chest: Symmetrical Cardiovascular: Rhythm Regular Respiratory: No Rales, No Rhonchi, No Wheezing Gastrointestinal/Abdominal: Soft, No Tenderness, No Guarding, No Rebound Back: Normal Inspection Extremity: Capillary Refill (2<sec.) Extremity: Bilateral: Atraumatic, No Pedal Edema, Normal Color And Temperature Pulses: Left Dorsalis Pedis: Normal, Right Dorsalis Pedis: Normal Neurological/Psych: Oriented x3, Normal Speech, Normal Cognition, Other ( speaking in complete sentences) Gait: Steady ED Course And Treatment - Laboratory Results Result Diagrams: 08/24/17 00:45 08/24/17 00:45 O2 Sat by Pulse Oximetry: 96 (RA) Pulse Ox Interpretation: Normal - Radiology CXR: Interpreted by Me, Viewed By Me CXR Interpretation: Yes: Other (kyphosis). No: Infiltrates, Fracture, Cardiomegaly Progress Note: A chest x-ray and mental health assessment was performed. Disposition Discussed With DrMontserrat: Ilia Vega Comment: accepted the pt on his service and took over the care at 1:19 AM Doctor Will See Patient In The: Hospital Counseled Patient/Family Regarding: Studies Performed, Diagnosis - Disposition Disposition: HOSPITALIZED Disposition Time: 23:23 Condition: FAIR Forms: [employer] (Albanian) - POA Present On Arrival: None - Clinical Impression Clinical Impression: Schizoaffective disorder - PA / TRAINING DEVELOPMENT DIRECTOR / Resident Statement MD/DO has examined the patient and agrees with the treatment plan. - Scribe Statement The provider has reviewed the documentation as recorded by the Scribmarie Pond All medical record entries made by the Clintibmarie were at my direction and personally dictated by me. I have reviewed the chart and agree that the record accurately reflects my personal performance of the history, physical exam, medical decision making, and the department course for this patient. I have also personally directed, reviewed, and agree with the discharge instructions and disposition. Decision To Admit - Pt Status Changed To: Hospital Disposition Of: Inpatient - Admit Certification Admit to Inpatient:: After my assessment, the patient will require hospitalization for at least two midnights. This is because of the severity of symptoms shown, intensity of services needed, and/or the medical risk in this patient being treated as an outpatient. - InPatient: Physician Admission Certification:: After my assessment, the patient will require hospitalization for at least two midnights. This is because of the severity of symptoms shown, intensity of services needed, and/or the medical risk in this patient being treated as an outpatient. - . Bed Request Type: Psychiatry Admitting Physician: Ilia Vega Patient Diagnosis: Schizoaffective disorder
[2017-08-24 00:48] LABS: BASO # 0.1 K/uL (0.0-0.2); BASO % 0.5 % (0.0-2.0); EOS # 0.3 K/uL (0.0-0.7); EOS % 2.3 % (0.0-4.0); HEMATOCRIT 39.6 % (34.0-47.0); LYMPH # 2.8 K/uL (1.0-4.3); LYMPH % 22.9 % (20.0-40.0); MEAN CELL VOLUME 89.9 fL (81.0-99.0); MEAN CORPUSCULAR HEMOGLOBIN 29.9 pg (27.0-31.0); MEAN CORPUSCULAR HGB CONC 33.3 g/dL (33.0-37.0); MEAN PLATELET VOLUME 8.1 fL (7.2-11.7); MONO # 0.6 K/uL (0.0-0.8); MONO % 4.9 % (0.0-10.0); NRBC % 0.1 % (0.0-2.0); RED CELL DISTRIBUTION WIDTH 13.8 % (11.5-14.5); WHITE BLOOD COUNT 12.1 K/uL (4.8-10.8)
[2017-08-24 00:51] LABS: RBC URINE 1 /hpf (0-3); URINE BILIRUBIN NEGATIVE (NEGATIVE); URINE BLOOD NEGATIVE (NEGATIVE); URINE COLOR Yellow (YELLOW); URINE GLUCOSE (UA) NORMAL (Normal); URINE KETONE NEGATIVE (NEGATIVE); URINE LEUKOCYTE ESTERASE NEG Leu/uL (Negative); URINE PROTEIN NEGATIVE (NEGATIVE); URINE UROBILINOGEN NORMAL mg/dL (0.2-1.0); WBC URINE 3 /hpf (0-5)
[2017-08-24 01:15] LABS: POTASSIUM 4.1 mmol/L (3.6-5.2)
[2017-08-24 01:40] LABS: ALB/GLOB RATIO 1.1 (1.0-2.1); ALKALINE PHOSPHATASE 111 U/L (38-126); ALT/SGPT 61 U/L (9-52); AST/SGOT 29 U/L (14-36); BILIRUBIN,TOTAL 1.3 mg/dL (0.2-1.3); BLOOD UREA NITROGEN 15 mg/dL (7-17); CALCIUM 9.1 mg/dl (8.6-10.4); CARBON DIOXIDE 23 mmol/L (22-30); CHLORIDE 99 mmol/L (98-107); GFR AFRICAN-AMERICAN > 60; GLUCOSE,RANDOM 176 mg/dL (65-105); SODIUM 135 mmol/L (132-148); TOTAL PROTEIN 8.2 g/dL (6.3-8.3)
[2017-08-24 01:45] LABS: ALCOHOL SERUM < 10 mg/dl (0-10)
[2017-08-24 02:17] VITALS: O2SAT 97
--- NOTE | 2017-08-24 03:25 | PCM.BM ---
<Miguel Garber - Last Filed: 08/24/17 03:22> Treatment Plan Problems - Problems identified on initial assessmt Medication non-adherence Date Initiated: 08/24/17 Time Initiated: 02:30 Assessment reference: NA Status: Active Treatment assets and liabiliti Patient Assests: self-reliant, ADL independent, negotiates basic needs Patient Liabilities: financial problems, dietary restrictions, medical problems - Milieu Protocol Maintain good personal hygiene: daily Encourage regular showers, daily Remind patient to perform daily oral care, daily Assist patient to perform ADL's Maintain personal safety: every shift Educate patient to report safety concerns to staff, every shift Monitor environment for contraband/sharps Medication safety: Monitor for expected outcome, potential side effects: every shift, Assess barriers to learning: every shift, Assess readiness for medication education: every shift <Bekah Baig - Last Filed: 08/27/17 10:45> Family Contact Family involvement: Family/SO is involved Family contact: Patient declines to allow family contact at present - Goals for Treatment Patient goals for treatment: "I want to go home." Discharge/Continuing Care - Education Needs Education Needs: Patient Medication, Patient Coping Skills - Discharge Discharge Criteria: Tolerates medication w/o severe side effects, Reduction of target symptoms Discharge to:: Home - Treatment Team Participation Discussed with Family/SO: No Was Patient/Family/SO present at Treatment Team Meeting: Yes <Kelle Narvaez - Last Filed: 08/27/17 10:46> - Diagnosis (1) Schizoaffective disorder Status: Acute Interventions: 08/27/17 10:45 * Assess/adjust medications daily and /or as needed * See patient on an individual basis 7x/week to assess status of hallucinations * Discuss risks, benefits, side effects and alternatives of medications *
[2017-08-24] MEDS: Levothyroxine 88 MCG TAB PO SCH (06:41)
--- NOTE | 2017-08-24 09:32 | PCM.PSYCH ---
Initial Psychiatric Evaluation - Initial Psychiatric Evaluation Type of Admission: Voluntary Legal Status: Capacity Chief Complaint (in patient's own words): I have pain in my belly.' History of Present Illness and Precipitating Events: This is a 56 years old female, who lives with her son and currently unemployed, came to the with complain of abdominal cramps and bizarre behavior. As per the ED notes, pt reported the following: "My mother prays over me;" My psychiatrist told me don't take those medications because you're becoming more manic." My doctor said he was going to pray for me, but he ." My doctor's giving me medication that's wrong. Lately, lately I was having stomach cramps that don't let me sleep, and when I lay down, I can't breath." Patient became increasingly disorganized. Academic Manager is familiar with the patient. Patient has been admitted to few times due to the disorganized behavior. Today, she remains disorganized and internally preoccupied with somatic symptoms. Although she denies any AVH but her thought process remains circumstantial and disorganized. She appears disheveled and unkempt. As per staff she was found talking to herself in her room. She reports anxiety and poor sleep. She denies any SI/HI or any AVH. Current Medications: Active Medications Generic Name Dose Route Start Last Admin Trade Name Freq PRN Reason Stop Dose Admin Levothyroxine Sodium 88 mcg 08/24/17 06:30 08/24/17 06:41 Synthroid PO 88 mcg DAILY@0630 GARRICK Administration Trazodone HCl 50 mg 08/24/17 02:32 Desyrel PO HS PRN Sleep Past Psychiatric History - Past Psychiatric History Previous Treatment History: Inpatient Pertinent Medical Hx (Current Medical&Sleep Prob, Allergies): Allergies Allergy/AdvReac Type Severity Reaction Status Date / Time tomato Allergy RASH Verified 08/20/17 20:38 Benztropine [Cogentin] 1 mg PO BID #60 tab 04/04/17 Haloperidol [Haldol] 5 mg PO BID #60 tab 04/04/17 Levothyroxine [Synthroid] 88 mcg PO DAILY@0630 #30 tab 04/04/17 Bentley Carbonate [[place] Carbonate 300MG] 300 mg PO TID #45 cap 04/04/17 metFORMIN [glucOPHAGE] 500 mg PO BID #60 tab 04/04/17 traZODone [Desyrel] 50 mg PO HS PRN #30 tab 04/04/17 Losartan [Cozaar] 50 mg PO DAILY #30 tab 07/06/17 Review of Systems - Review of Systems All systems: reviewed and no additional remarkable complaints except - Psychiatric Psychiatric: Anxiety, Irritability Mental Status Examination - Personal Presentation Personal Presentation: Looks stated age - Affect Affect: Constricted, Depressed - Motor Activity Motor Activity: Calm - Reliability in Providing Information Reliability in Providing Information: Poor, due to alteration in thoughts, Poor , due to altered mood - Speech Speech: Disorganized - Mood Mood: Anxious - Formal Thought Process Formal Thought Process: Delusions, Paranoia, Loosening of associations - Obsessions/Compulsions Obsessions: No Compulsions: No - Cognitive Functions Orientation: Person, Place, Situation, Time Sensorium: Alert Attention/Concentration: Attentive Abstract Thinking: Elsie Estimate of Intelligence: Below average Judgement: Imparied, as evidence by: Poor judgement, Imparied, as evidence by: Lack of insight into illness - Risk Risk: Diminished functioning - Strength & Assets Inventory Strength & Assets Inventory: Family support DSM 5 DX - DSM 5 DSM 5 Diagnosis: Schizoaffective disorder bipolar type - Recommended/Plan of Treatment Treatment Recommendations and Plan of Treatment: Schizoaffective disorder bipolar type CBT Psychoeducation Supportive therapy, group therapy, individual therapy Haldol 5 mg by mouth twice a day Cogentin 1 mg by mouth twice a day [place] 300 mg PO TID Trazodone 50 mg by mouth daily at bedtime DM Continue prescribed medications Monitor signs and symptoms Hypothyroidism Continue prescribed medications Monitor signs and symptoms HTN Continue prescribed medications Monitor signs and symptoms - Smoking Cessation Smoking Cessation Initiated: No
--- NOTE | 2017-08-24 09:43 | RAD ---
HISTORY: cough COMPARISON: No prior. TECHNIQUE: Chest PA and lateral FINDINGS: LUNGS: No active pulmonary disease. PLEURA: No significant pleural effusion identified. No pneumothorax apparent. CARDIOVASCULAR: Normal. 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 VISUALIZED UPPER ABDOMEN: Normal. OTHER FINDINGS: None. IMPRESSION: No acute cardiopulmonary disease appreciated.
[2017-08-25] MEDS ORDERED: DiphenhydrAMINE 50 mg/ml Inj IM STA ×2 (01:42→01:43)
[2017-08-25] MEDS: Levothyroxine 88 MCG TAB PO SCH (06:49)
[2017-08-25] MEDS: Aluminum Hydroxide/Magnesium Hydroxide Susp (30 mL) PO PRN (18:10)
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
[2017-08-26] MEDS: Levothyroxine 88 MCG TAB PO SCH (06:35)
[2017-08-26] MEDS: Ergocalciferol 50,000 Intl Units Cap PO SCH (10:46)
--- NOTE | 2017-08-26 12:48 | PCM.PYCHPN ---
Psychiatric Progress Note - Psychiatric Progress Note Patient seen today, length of contact: 16 min Patient Chief Complaint: I have pain in my belly.' Problems Identified/Issues Discussed: Patient seen and evaluated, chart reviewed and discussed with the nurse. Patient remained disorganized and internally preoccupied. She still appears paranoid and delusional. As per the staff she was found taking and laughing by herself in her room. She reports anxiety and physical symptoms, but remained isolated, confined, paranoid and withdrawn. She is taking medication and denies any side effects. She needs more time for stabilization. Supportive therapy and psychoeducation were given. Medication Change: Yes (increase meds) Medical Record Reviewed: Yes Mental Status Examination - Cognitive Function Orientation: Person, Place, Situation, Time Memory: Impaired Attention: Poor Concentration: Poor Association: Loose Fund of Knowledge: Poor - Mood Mood: Anxious, Other (easily agitated) - Affect Affect: Constricted, Depressed - Speech Speech: Loud - Formal Thought Process Formal Thought Process: Delusions, Paranoia, Loosening of associations - Suicidal Ideation Suicidal Ideation: No - Homicidal Ideation Homicidal Ideation: No Goal/Treatment Plan - Goal/Treatment Plan Need for Continued Stay: Discharge may exacerbated symptoms, Severe functional impairment Progress Toward Problem(s) and Goals/Treatment Plan: Schizoaffective disorder bipolar type CBT Psychoeducation Supportive therapy, group therapy, individual therapy Haldol 5 mg by mouth twice a day Cogentin 1 mg by mouth twice a day [place] 300 mg PO daily [place] 600 mg PO QHS Trazodone 50 mg by mouth daily at bedtime DM Continue prescribed medications Monitor signs and symptoms Hypothyroidism Continue prescribed medications Monitor signs and symptoms HTN Continue prescribed medications Monitor signs and symptoms - Smoking Cessation Smoking Cessation Initiated: No
[2017-08-27] MEDS: Levothyroxine 88 MCG TAB PO SCH (06:08)
--- NOTE | 2017-08-27 10:06 | PCM.PYCHPN ---
Psychiatric Progress Note - Psychiatric Progress Note Patient seen today, length of contact: 16 min Patient Chief Complaint: "mentally good, physically not so good" Problems Identified/Issues Discussed: The patient was seen, chart reviewed, and case discussed with staff. Patient and staff report no events overnight. She reports slept well with good appetite yesterday. She denies feelings of depression or anxiety. She states, " I was augustine at home because we lost power and that stressed me out." Patient remained disorganized and internally preoccupied. She still appears paranoid and delusional. She denies any auditory or visual hallucinations. She reports feelings of paranoia at times, that there is someone watching her. She denies any suicidal or homicidal ideations. Patient is compliant with medications and reports no side effects. Symptoms are improving but need more time to stabilize. After care discussed, support and psychoeducation given. Medical Problems: Patient also complains of cramps, abdominal pain, and "inflammation." Medication Change: Yes (increase lithium) Medical Record Reviewed: Yes Mental Status Examination - Cognitive Function Orientation: Person, Place, Situation, Time Memory: Impaired Attention: Poor Concentration: Poor Association: Loose Fund of Knowledge: Poor - Mood Mood: Anxious, Other (easily agitated) - Affect Affect: Constricted, Depressed - Speech Speech: Loud - Formal Thought Process Formal Thought Process: Delusions, Paranoia, Loosening of associations - Suicidal Ideation Suicidal Ideation: No - Homicidal Ideation Homicidal Ideation: No Goal/Treatment Plan - Goal/Treatment Plan Need for Continued Stay: Discharge may exacerbated symptoms, Severe functional impairment Progress Toward Problem(s) and Goals/Treatment Plan: Schizoaffective disorder bipolar type CBT Psychoeducation Supportive therapy, group therapy, individual therapy Haldol 10 mg by mouth twice a day Cogentin 1 mg by mouth twice a day [place] 300 mg PO daily [place] 600 mg po QHS Trazodone 50 mg by mouth daily at bedtime DM Continue prescribed medications Monitor signs and symptoms Hypothyroidism Continue prescribed medications Monitor signs and symptoms HTN Continue prescribed medications Monitor signs and symptoms - Smoking Cessation Smoking Cessation Initiated: No
[2017-08-28] MEDS: Levothyroxine 88 MCG TAB PO SCH (07:04)
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
[2017-08-28] MEDS: Aluminum Hydroxide/Magnesium Hydroxide Susp (30 mL) PO PRN (18:08)
[2017-08-29] MEDS: Aluminum Hydroxide/Magnesium Hydroxide Susp (30 mL) PO PRN (01:01)
[2017-08-29] MEDS: Levothyroxine 88 MCG TAB PO SCH (06:02)
--- NOTE | 2017-08-29 11:00 | PCM.PYCHPN ---
Psychiatric Progress Note - Psychiatric Progress Note Patient seen today, length of contact: 16 min Patient Chief Complaint: "I'm upset" Problems Identified/Issues Discussed: This patient was seen, chart reviewed, and case discussed with staff. As per the staff pt remained disorganized and internally preoccupied. Staff report that pt at times becomes irritable and agitated towards other patients. Patient reports she slept fine overnight until about 3:00am, at which time she became anxious and irritable. She reports she spoke with the staff who "got loud with me so I got loud too." She reports she then received a shot of Haldol and went back to bed. She denies any auditory or visual hallucinations. Patient appears disheveled but appropriately dressed. She is talkative and shows loosening of associations, but can be redirected. She is social, freely leaves her room and walks in the halls. She is irritable during the interview. Patient is compliant with medications and reports no side effects. Symptoms are improving but need more time to stabilize. After care discussed, support and psychoeducation given. Medication Change: Yes (increase trazodone, start klonopin) Medical Record Reviewed: Yes Mental Status Examination - Cognitive Function Orientation: Person, Place, Situation, Time Memory: Impaired Attention: Poor Concentration: Poor Association: Loose Fund of Knowledge: Poor - Mood Mood: Anxious, Other (easily agitated) Additional comments: agitated - Affect Affect: Constricted, Depressed - Speech Speech: Loud - Formal Thought Process Formal Thought Process: Delusions, Paranoia, Loosening of associations - Suicidal Ideation Suicidal Ideation: No - Homicidal Ideation Homicidal Ideation: No Goal/Treatment Plan - Goal/Treatment Plan Need for Continued Stay: Discharge may exacerbated symptoms, Severe functional impairment Progress Toward Problem(s) and Goals/Treatment Plan: Schizoaffective disorder bipolar type CBT Psychoeducation Supportive therapy, group therapy, individual therapy Haldol 10 mg by mouth twice a day Cogentin 1 mg by mouth twice a day [place] 300 mg PO daily [place] 900 mg po QHS Trazodone 100 mg by mouth daily at bedtime Klonopin 1 mg PO BID DM Continue prescribed medications Monitor signs and symptoms Hypothyroidism Continue prescribed medications Monitor signs and symptoms HTN Continue prescribed medications Monitor signs and symptoms - Smoking Cessation Smoking Cessation Initiated: No
[2017-08-29] MEDS: Haloperidol Decanoate 100 mg/ml Inj IM ONE ×2 (17:51→18:04)
[2017-08-30] MEDS: Levothyroxine 88 MCG TAB PO SCH (06:27)
--- NOTE | 2017-08-30 10:58 | PCM.PYCHPN ---
Psychiatric Progress Note - Psychiatric Progress Note Patient seen today, length of contact: 16 min Patient Chief Complaint: "I'm bad" Problems Identified/Issues Discussed: This patient was seen, chart reviewed, and case discussed with staff. Today pt remained labile, irritable and agitated. She is refusing to take her medications. She remained disorganized and internally preoccupied. Patient appears disheveled, paranoid and delusional. She continued to pace back and forth in the hallways. She is talkative and shows loosening of associations , and speech is still circumstantial and tangential. Patient is partially compliant with medications and reports no side effects. Symptoms are improving but need more time to stabilize. After care discussed, support and psychoeducation given. [facility] screeners will be called for involuntary commitment. Medication Change: Yes (Haldol decanoate) Medical Record Reviewed: Yes Mental Status Examination - Cognitive Function Orientation: Person, Place, Situation, Time Memory: Impaired Attention: Poor Concentration: Poor Association: Loose Fund of Knowledge: Poor - Mood Mood: Anxious, Other (easily agitated) - Affect Affect: Constricted, Depressed - Speech Speech: Loud - Formal Thought Process Formal Thought Process: Delusions, Paranoia, Loosening of associations - Suicidal Ideation Suicidal Ideation: No - Homicidal Ideation Homicidal Ideation: No Goal/Treatment Plan - Goal/Treatment Plan Need for Continued Stay: Discharge may exacerbated symptoms, Severe functional impairment Progress Toward Problem(s) and Goals/Treatment Plan: Schizoaffective disorder bipolar type CBT Psychoeducation Supportive therapy, group therapy, individual therapy Haldol 10 mg by mouth twice a day Cogentin 1 mg by mouth twice a day [place] 300 mg PO daily [place] 900 mg po QHS Trazodone 200 mg by mouth daily at bedtime Klonopin 1mg po bid Haldol decanoate 100 mg I/M DM Continue prescribed medications Monitor signs and symptoms Hypothyroidism Continue prescribed medications Monitor signs and symptoms HTN Continue prescribed medications Monitor signs and symptoms - Smoking Cessation Smoking Cessation Initiated: No
[2017-08-30] MEDS: Aluminum Hydroxide/Magnesium Hydroxide Susp (30 mL) PO PRN (11:16)
[2017-08-30] MEDS ORDERED: Pantoprazole 40 mg EC Tab PO SCH (14:45)
[2017-08-30] MEDS: Pantoprazole 40 mg EC Tab PO SCH (16:04)
[2017-08-30] MEDS ORDERED: Bismuth Subsalicylate 262 mg Chew Tab PO PRN (21:04)
[2017-08-31] MEDS: Levothyroxine 88 MCG TAB PO SCH (06:26)
[2017-08-31] MEDS: Pantoprazole 40 mg EC Tab PO SCH (09:44)
--- NOTE | 2017-08-31 10:18 | PCM.PYCHPN ---
Psychiatric Progress Note - Psychiatric Progress Note Patient seen today, length of contact: 16 min Patient Chief Complaint: "I'm tired and drowsy" Problems Identified/Issues Discussed: This patient was seen, chart reviewed, and case discussed with staff. Patient reports she feels tired from poor sleep. She remains disorganized and internally preoccupied throughout the interview. She denies any feelings of depression or anxiety. She denies any feelings of auditory or visual hallucinations or feelings of paranoia. She denies any suicidal or homicidal ideations. Patient appears disheveled, paranoid and delusional. She appears more lethargic and drowsy than previous days. She continued to pace back and forth in the hallways. She is talkative and shows loosening of associations, and speech is still circumstantial and tangential. Staff report that [facility] screeners did not agree to involuntary commitment. Patient is partially compliant with medications and reports no side effects. Symptoms are improving but need more time to stabilize. After care discussed, support and psychoeducation given. Medication Change: Yes (Haldol decanoate) Medical Record Reviewed: Yes Mental Status Examination - Cognitive Function Orientation: Person, Place, Situation, Time Memory: Impaired Attention: Poor Concentration: Poor Association: Loose Fund of Knowledge: Poor - Mood Mood: Anxious, Other (easily agitated) - Affect Affect: Constricted, Depressed - Speech Speech: Loud - Formal Thought Process Formal Thought Process: Delusions, Paranoia, Loosening of associations - Suicidal Ideation Suicidal Ideation: No - Homicidal Ideation Homicidal Ideation: No Goal/Treatment Plan - Goal/Treatment Plan Need for Continued Stay: Discharge may exacerbated symptoms, Severe functional impairment Progress Toward Problem(s) and Goals/Treatment Plan: Schizoaffective disorder bipolar type CBT Psychoeducation Supportive therapy, group therapy, individual therapy Haldol 10 mg by mouth twice a day Cogentin 1 mg by mouth twice a day [place] 300 mg PO daily [place] 900 mg po QHS Trazodone 200 mg by mouth daily at bedtime Klonopin 1mg po bid Haldol decanoate 100 mg I/M DM Continue prescribed medications Monitor signs and symptoms Hypothyroidism Continue prescribed medications Monitor signs and symptoms HTN Continue prescribed medications Monitor signs and symptoms
[2017-09-01] MEDS: Levothyroxine 88 MCG TAB PO SCH (06:32)
--- NOTE | 2017-09-01 08:59 | PCM.PYCHPN ---
Psychiatric Progress Note - Psychiatric Progress Note Patient seen today, length of contact: 16 min Patient Chief Complaint: "I'm tired and drowsy" Problems Identified/Issues Discussed: This patient was seen, chart reviewed, and case discussed with staff. Patient reports she feels tired from poor sleep. She remains disorganized and internally preoccupied throughout the interview. She denies any feelings of depression or anxiety. She denies any feelings of auditory or visual hallucinations or feelings of paranoia. She denies any suicidal or homicidal ideations. Patient appears disheveled, paranoid and delusional. She appears more lethargic and drowsy than previous days. She continued to pace back and forth in the hallways. She is talkative and shows loosening of associations, and speech is still circumstantial and tangential. Staff report that [facility] screeners did not agree to involuntary commitment. Patient is partially compliant with medications and reports no side effects. Symptoms are improving but need more time to stabilize. After care discussed, support and psychoeducation given. Medical Problems: Patient also complains of cramps, abdominal pain, and "inflammation." Medication Change: Yes (Haldol decanoate) Medical Record Reviewed: Yes Mental Status Examination - Cognitive Function Orientation: Person, Place, Situation, Time Memory: Impaired Attention: Poor Concentration: Poor Association: Loose Fund of Knowledge: Poor - Mood Mood: Anxious, Other (easily agitated) - Affect Affect: Constricted, Depressed - Speech Speech: Loud - Formal Thought Process Formal Thought Process: Delusions, Paranoia, Loosening of associations - Suicidal Ideation Suicidal Ideation: No - Homicidal Ideation Homicidal Ideation: No Goal/Treatment Plan - Goal/Treatment Plan Need for Continued Stay: Discharge may exacerbated symptoms, Severe functional impairment Progress Toward Problem(s) and Goals/Treatment Plan: Schizoaffective disorder bipolar type CBT Psychoeducation Supportive therapy, group therapy, individual therapy Haldol 10 mg by mouth twice a day Cogentin 1 mg by mouth twice a day Ranier 300 mg PO daily Ranier 900 mg po QHS Trazodone 200 mg by mouth daily at bedtime Klonopin 1mg po bid Haldol decanoate 100 mg I/M DM Continue prescribed medications Monitor signs and symptoms Hypothyroidism Continue prescribed medications Monitor signs and symptoms HTN Continue prescribed medications Monitor signs and symptoms
[2017-09-01] MEDS: Pantoprazole 40 mg EC Tab PO SCH (09:49)
--- NOTE | 2017-09-01 10:28 | CARD ---
APPROVED REPORT EKG Measurement Heart [id number] <Conclusion> Normal sinus rhythm Prolonged QT Abnormal ECG
[2017-09-02] MEDS: Levothyroxine 88 MCG TAB PO SCH (05:49)
[2017-09-02 06:42] VITALS: BP 114/76; PULSE 60; RESP 20; TEMP 97.6
--- NOTE | 2017-09-02 09:48 | PCM.PYCHDC ---
Mental Status Examination - Mental Status Examination Orientation: Person, Place, Situation, Time Mood: Neutral Affect: Constricted Speech: Soft Attention: WNL Fund of Knowledge: WNL Formal Thought Process: No Impairment Suicidal Ideation: No Current Homicidal Ideation?: No Discharge Summary - Discharge Note Consultations:: List each consultation separately and include: 1. Reason for request. 2. Findings. 3. Follow-up Summary of Hospital Course include:: 1. Description of specific treatment plan utilized for patients during their course of treatmen. 2. Summarize the time- course for resolution of acute symptoms and/or regressed behaviors. 3. Describe issues identified and worked on during hospitalization. 4. Describe medication utilized. 5. Describe medical problems identified and treated. 6. Reassessment of suicide risk Summary of Hospital Course: This is a 56 years old female, who lives with her son and currently unemployed, came to the with complain of abdominal cramps and bizarre behavior. As per the ED notes, pt reported the following: "My mother prays over me;" My psychiatrist told me don't take those medications because you're becoming more manic." My doctor said he was going to pray for me, but he ." My doctor's giving me medication that's wrong. Lately, lately I was having stomach cramps that don't let me sleep, and when I lay down, I can't breath." Patient became increasingly disorganized. [employer] Supervisor is familiar with the patient. Patient has been admitted to few times due to the disorganized behavior. Today, she remains disorganized and internally preoccupied with somatic symptoms. Although she denies any AVH but her thought process remains circumstantial and disorganized. She appears disheveled and unkempt. As per staff she was found talking to herself in her room. She reports anxiety and poor sleep. She denies any SI/HI or any AVH. - Diagnosis (1) Schizoaffective disorder Current Visit: Yes Status: Acute - Final Diagnosis (DSM 5) Condition upon Discharge: FAIR Disposition: HOME/ ROUTINE Prescriptions/Medication Reconciliation: Benztropine [Cogentin] 1 mg PO BID #60 tab Haloperidol [Haldol] 10 mg PO BID #60 tab hydrOXYzine HCl [Atarax] 25 mg PO TID #90 tab Levothyroxine [Synthroid] 88 mcg PO DAILY@0630 #30 tab Dillon Carbonate [Dillon Carbonate 300MG] 600 mg PO QPM #30 cap Dillon Carbonate [Dillon Carbonate 300MG] 300 mg PO DAILY #30 cap metFORMIN [glucOPHAGE] 500 mg PO BID #60 tab traZODone [Desyrel] 100 mg PO HS PRN #30 tab PRN Reason: Sleep
--- NOTE | 2017-09-02 09:49 | PCM.PYCHPN ---
Psychiatric Progress Note - Psychiatric Progress Note Patient seen today, length of contact: 16 min Medication Change: Yes (Haldol decanoate) Medical Record Reviewed: Yes Mental Status Examination - Cognitive Function Orientation: Person, Place, Situation, Time Attention: WNL Fund of Knowledge: WNL - Mood Mood: Neutral - Affect Affect: Constricted - Speech Speech: Soft - Formal Thought Process Formal Thought Process: No Impairment - Suicidal Ideation Suicidal Ideation: No - Homicidal Ideation Homicidal Ideation: No Goal/Treatment Plan - Goal/Treatment Plan Need for Continued Stay: Discharge may exacerbated symptoms, Severe functional impairment
[2017-09-02] MEDS: Ergocalciferol 50,000 Intl Units Cap PO SCH (10:08)
[2017-09-02] MEDS: Pantoprazole 40 mg EC Tab PO SCH (10:46)
== END 2017-09-02 14:54 | disposition home or self-care (01) | DRG 885 ==
LOC: C.ER 22:16 → C.5E 08-24 01:15
PROVIDERS: ADMIT Psychiatry & Neurology Psychiatry; ATTEND Psychiatry & Neurology Psychiatry
PROC: GZ3ZZZZ Medication Management (ICD-10-PCS; principal; 2017-08-24)
PROC: GZHZZZZ Group Psychotherapy (ICD-10-PCS; 2017-08-24)
PROC: GZ56ZZZ Individual Psychotherapy, Supportive (ICD-10-PCS; 2017-08-24)
DX: F25.0 Schizoaffective disorder, bipolar type (principal); F41.9 Anxiety disorder, unspecified; E11.9 Type 2 diabetes mellitus without complications; I10 Essential (primary) hypertension; E03.9 Hypothyroidism, unspecified; E78.00 Pure hypercholesterolemia, unspecified